=== PATIENT | male | born 1985 | race Caucasian/White ===

== ENCOUNTER → 2022-12-29 | Outpatient (CLI) | payer OTHER ==
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
== END | disposition home or self-care (01) ==
LOC: RADUSWWP 11:00
PROVIDERS: ATTEND Emergency Medicine
DX: S80.11XA Contusion of right lower leg, initial encounter (principal); S81.801A Unspecified open wound, right lower leg, initial encounter; M79.89 Other specified soft tissue disorders